=== PATIENT | male | born 1965 | race Hispanic/Latino ===

== ENCOUNTER 2021-01-12 07:20 | Observation (INO) | payer OTHER ==
[2021-01-06 11:00] LABS: BASOPHILS % (AUTO) 0.8 % (0.0-5.0); EOSINOPHILS % (AUTO) 2.6 % (0.0-8.0); MEAN CORPUSCULAR HEMOGLOBIN 31.2 pg (27.0-33.0); MEAN CORPUSCULAR HGB CONC 33.5 g/dL (32.0-36.0); MEAN CORPUSCULAR VOLUME 93.3 fL (79-99); MONOCYTES % (AUTO) 8.6 % (3.0-13.0); NEUTROPHILS % (AUTO) 61.3 % (40.0-77.0); PLATELET COUNT (AUTO) 263 K/uL (130-400); RED BLOOD CELL COUNT(AUTO) 4.93 MIL/uL (4.50-6.20); RED CELL DISTRIBUTION WIDTH 12.3 % (11.0-15.5); WHITE BLOOD COUNT (AUTO) 8.5 K/uL (4.8-10.8)
[2021-01-06 11:05] LABS: POTASSIUM 4.7 mmol/L (3.5-5.1)
[2021-01-06 11:29] LABS: INR 1.04 (0.85-1.15); PROTHROMBIN TIME 11.3 SEC (9.6-11.6)
[2021-01-06 11:30] LABS: PARTIAL THROMBOPLASTIN TIME 29.4 SEC (26.3-35.5)
[2021-01-11 10:44] VITALS: BP 120/75
[~2021-01-12] VITALS: Ht 162.6 cm; Wt 80.6 kg
[2021-01-12] VITALS (25 sets, daily range): BP systolic 108–135; BP diastolic 60–84
[~2021-01-12 07:20] MED LIST: ATOR20TA65 PO; CELE200C PO; FENO54TA6 PO; IBUP-2077 PO
[2021-01-12] MEDS ORDERED: CLINDAMYCIN IVPB 600MG/50ML 50 ML IV ONE (07:37)
[2021-01-12] MEDS ORDERED: LACTATED RINGERS 1000ML 1,000 ML IV ONE (07:37)
[2021-01-12] MEDS ORDERED: TRANEXAMIC ACID 1000MG/10ML ONE (10:49)
[2021-01-12] MEDS ORDERED: MIDAZOLAM HCL 1 MG/ML 2ML VIAL ONE (11:06)
[2021-01-12] MEDS ORDERED: ROCURONIUM 10MG/1ML SYR 10 MG/ML ML ONE (11:07)
[2021-01-12] MEDS ORDERED: PROPOFOL 10 MG/ML 20ML VIAL IV ONE (11:07)
[2021-01-12] MEDS ORDERED: LIDOCAINE HCL-MPF 1% 5ML AMP IJ ONE (11:07)
[2021-01-12] MEDS ORDERED: LIDOCAINE PF 100MG/5ML (2%) SYRINGE 5ML ONE (11:07)
[2021-01-12] MEDS ORDERED: SUCCINYLCHOLINE CHLORIDE 20 MG/ML 10 ML VIAL ONE (11:07)
[2021-01-12] MEDS ORDERED: ROPIVACAINE 0.5% 5MG/ML 30ML IJ ONE (11:10)
[2021-01-12] MEDS ORDERED: FENTANYL CITRATE PF 50 MCG/1 ML 2ML VIAL ONE (11:46)
[2021-01-12] MEDS ORDERED: PHENYLEPHRINE HCL 10 MG/ML 1ML VIAL IV ONE (12:45)
[2021-01-12] MEDS ORDERED: NEOSTIGMINE 5MG/5ML SYR IV ONE (12:52)
[2021-01-12] MEDS ORDERED: GLYCOPYRROLATE 1 MG/5 ML SYRINGE ONE (12:52)
[2021-01-12] MEDS ORDERED: ONDANSETRON 4MG INJ ONE (12:52)
[2021-01-12] MEDS: ACETAMINOPHEN 500 MG TABLET PO SCH ×2 (13:15→19:59)
[2021-01-12] MEDS ORDERED: MEPERIDINE-PF 25 MG/ML SYG ONE ×2 (13:15→13:29)
[2021-01-12] MEDS ORDERED: HYDROCODONE/ACETAMINOPHEN 5/325 MG TAB PO PRN (13:15)
[2021-01-12] MEDS ORDERED: MORPHINE 4 MG SYG IVP PRN (13:15)
[2021-01-12] MEDS ORDERED: 0.9%NACL 1000ML 1,000 ML IV SCH (13:15)
[2021-01-12] MEDS ORDERED: ONDANSETRON 4MG INJ IVP PRN (13:15)
[2021-01-12] MEDS ORDERED: CLINDAMYCIN IVPB 900MG/50ML 50 ML IV ONE (14:20)
[2021-01-12] MEDS: OXYCODONE HCL 5 MG TAB PO PRN ×2 (16:40→23:06)
[2021-01-12] MEDS: TRAMADOL HCL 50 MG TABLET PO SCH ×2 (18:17→23:06)
[2021-01-12] MEDS: CLINDAMYCIN IVPB 900MG/50ML 50 ML IVPB SCH (18:18)
[2021-01-12] MEDS ORDERED: CELECOXIB 200 MG CAP ONE (19:02)
[2021-01-12] MEDS ORDERED: FAMOTIDINE 20MG TAB ONE (19:02)
[2021-01-12] MEDS: FAMOTIDINE 20MG TAB PO SCH (19:59)
[2021-01-12] MEDS: CELECOXIB 200 MG CAP PO SCH (19:59)
[2021-01-12] MEDS ORDERED: **HM** FENOFIBRATE 54MG PO SCH (21:00)
[2021-01-13] MEDS: CLINDAMYCIN IVPB 900MG/50ML 50 ML IVPB SCH (00:28)
[2021-01-13 04:16] VITALS: BP 101/59
[2021-01-13] MEDS: TRAMADOL HCL 50 MG TABLET PO SCH ×2 (04:58→12:10)
[2021-01-13] MEDS: ACETAMINOPHEN 500 MG TABLET PO SCH (04:59)
[2021-01-13 05:38] LABS: HEMATOCRIT 34.7 % (42-54); MEAN CORPUSCULAR HEMOGLOBIN 30.5 pg (27.0-33.0); MEAN CORPUSCULAR HGB CONC 33.7 g/dL (32.0-36.0); MEAN CORPUSCULAR VOLUME 90.4 fL (79-99); RED BLOOD CELL COUNT(AUTO) 3.84 MIL/uL (4.50-6.20); WHITE BLOOD COUNT (AUTO) 11.3 K/uL (4.8-10.8)
[2021-01-13 05:59] LABS: POTASSIUM 3.7 mmol/L (3.5-5.1)
[2021-01-13 07:15] VITALS: BP 109/64
[2021-01-13] MEDS ORDERED: ROPIVICAINE 250MG+KETOROLAC 15MG+EPINEPHRINE 0.3+CLONIDINE 80 IV PRN ×5 (08:00)
[2021-01-13] MEDS: FAMOTIDINE 20MG TAB PO SCH (08:04)
[2021-01-13] MEDS: CELECOXIB 200 MG CAP PO SCH (08:04)
[2021-01-13] MEDS: OXYCODONE HCL 5 MG TAB PO PRN (08:05)
[2021-01-13] MEDS ORDERED: POLYETHYLENE GLYCOL 3350 17 GM POWD.PACK PO SCH (09:00)
[2021-01-13 11:18] VITALS: BP 140/71
[2021-01-13] MEDS ORDERED: ACETAMINOPHEN 500 MG TABLET PO SCH (14:00)
[2021-01-15] MEDS ORDERED: BISACODYL 10 MG SUPP.RECT RC PRN (13:15)
== END 2021-01-13 17:13 | disposition home or self-care (01) ==
LOC: DAH 07:20 → INTOOBSV 07:21 → OBSVTOIN 07:21 → DAH 07:21 → DAHIP 07:21 → UNDOADMOB 13:47 → 4AH 13:59
PROVIDERS: ADMIT Orthopaedic Surgery; ATTEND Orthopaedic Surgery
DX: M17.12 Unilateral primary osteoarthritis, left knee (principal); Z20.822 Contact with and (suspected) exposure to COVID-19
CPT/HCPCS: 27447; 36415 ×2; 73562; 80048 ×2; 85025; 85027; 85610; 85730; 87635; 87641; 96361; 96365; 96366; 96375; 97039 ×2; 97116 ×2; 97161; 97530; A4215; A4221; A4222; A4223; A4649 ×4; A4930; C1776; C9803; G0378 ×27; G8978; G8979; G8980; G8981; G8982; G8983; J0330; J2001; J2175 ×2; J2250; J2270; J2370; J2405 ×2; J2704; J2710; J2795; J3010; J3490 ×6; J7030 ×2; J7120

== ENCOUNTER → 2024-04-01 | Outpatient (CLI) | payer OTHER ==
[~2024-04-01] MED LIST changes: -CELE200C PO; +CELE200C3 PO
== END | disposition home or self-care (01) ==
LOC: RAH 15:42
PROVIDERS: ATTEND Internal Medicine
DX: I10 Essential (primary) hypertension (principal)
CPT/HCPCS: 71046

== ENCOUNTER → 2024-07-01 | Outpatient (CLI) | payer OTHER ==
--- NOTE | 2024-07-01 14:11 | HMCIMG ---
CERV SPINE 4-5 VWS REASON: OSTEOARTHRITIS OF CMC JOINS BILAT, cervical RADICULOTHY. COMPARISON: None TECHNIQUE: 4 images of cervical spine were obtained. FINDINGS: There is straightening of normal lordotic cervical curvature which may be related to muscle spasm or positioning. No loss of vertebral height is seen. IMPRESSION: No loss of vertebral height. KIP.
--- NOTE | 2024-07-01 14:13 | HMCIMG ---
HANDS BILAT, 3 VWS EACH REASON: OSTEOARTHRITIS OF CMC JOINS BILAT, CERVICAL RADICULO THY. COMPARISON: None TECHNIQUE: 3 images of bilateral hands were obtained. FINDINGS: Radiocarpal joint space narrowing and interphalangeal joint space narrowing are seen. No evidence of fracture or dislocation is seen. IMPRESSION: Findings as described above.
== END | disposition home or self-care (01) ==
LOC: OIH 13:16
PROVIDERS: ATTEND Physical Medicine & Rehabilitation
DX: M47.22 Other spondylosis with radiculopathy, cervical region (principal); M18.0 Bilateral primary osteoarthritis of first carpometacarpal joints; M54.2 Cervicalgia; M19.041 Primary osteoarthritis, right hand; M19.042 Primary osteoarthritis, left hand
CPT/HCPCS: 72050

== ENCOUNTER → 2024-09-30 | Outpatient (CLI) | payer OTHER ==
--- NOTE | 2024-09-30 15:56 | HMCIMG ---
Exam Type: CT cervical spine without contrast Clinical Information: Spondylosis without myelopathy or radiculopathy, cervical region Comparison: None Technique: Spiral axial images were performed from the base of the skull down to the thoracic vertebral bodies. Both sagittal and coronal reconstructions were performed. CT Dose Index (CTDI): 12.85 mGy Dose Length Product (DLP): 282.6 total Findings: There is normal alignment of the vertebral bodies. There are no fractures. No facet hypertrophy. The prevertebral soft tissues are normal. IMPRESSION: NORMAL CERVICAL SPINE CT. This study was performed using dose reduction techniques to include automated exposure control and/or adjustment of the mA and/or kV according to patient size.
== END | disposition home or self-care (01) ==
LOC: RAH 13:56
PROVIDERS: ATTEND Physical Medicine & Rehabilitation
DX: M47.812 Spondylosis without myelopathy or radiculopathy, cervical region (principal)
CPT/HCPCS: 72125